=== PATIENT | male | born 1965 | race Caucasian/White ===

== ENCOUNTER 2025-05-02 20:11 | Inpatient (IN) | payer MEDICAID, OTHER ==
[~2025-05-02] VITALS: Ht 175.3 cm; Wt 66.0 kg
[2025-05-02] MEDS ORDERED: magnesium sulf-water 4G/100mL 100 ML IV PRN (22:35)
[2025-05-02] MEDS ORDERED: magnesium sulf-water 2g/50mL 50 ML IV PRN (22:35)
[2025-05-02] MEDS ORDERED: ondansetron/PF 4mg/2ml inj IV PRN (22:35)
[2025-05-02] MEDS ORDERED: potassium Cl 40MEQ/1/2NS 520ml 520 ML IV PRN (22:35)
[2025-05-02] MEDS ORDERED: mag hydrox/Alum hydrox/simeth 30ml oral suspension PO PRN (22:35)
[2025-05-02] MEDS ORDERED: magnesium Cl slow-release 64mg tablet PO PRN (22:35)
[2025-05-02] MEDS ORDERED: potassium Cl 20 mEq SR tablet PO PRN ×2 (22:35)
[2025-05-02] MEDS ORDERED: LANS30CA56 PO (23:14)
[2025-05-02] MEDS ORDERED: TRAZ150T78 PO (23:14)
[2025-05-02] MEDS ORDERED: CITA-178 PO (23:14)
[2025-05-02] MEDS ORDERED: LISI10TA27 PO (23:14)
[2025-05-02] MEDS ORDERED: ESCI-8 PO (23:14)
[2025-05-02] MEDS ORDERED: BUPR1PAT20 TD (23:14)
[2025-05-02] MEDS ORDERED: ATOR-2 PO (23:14)
[2025-05-02] MEDS ORDERED: DIPH25CA83 PO (23:14)
[2025-05-02] MEDS ORDERED: HYDR-3964 PO (23:14)
[2025-05-02] MEDS ORDERED: OMEG-270 PO (23:14)
--- NOTE | 2025-05-02 23:14 | HISTORY AND PHYSICAL-Residence ---
History & Physical Providers to CC Resident Creating Document: BHAVIN LUCEROLUKASDESEAN THOMAS CC: JOSELYN VARGAS MD ~ History of Present Illness Reason for Admit\Complaint: Hydropneumothorax History of Present Illness Patient is a 59-year-old male with a history of recent diagnosis of lung neoplasia, chronic pancreatitis, hypertension, depression/anxiety, and recent history of SBO who came transferred from [facility] for higher level of care. Patient was initially admitted at [facility] at the end of March with diagnosis of SBO which was treated medically and discharged. On the day after discharge, patient went back to the ER due to nausea and vomiting, imaging was performed where he was found to have a right hydropneumothorax along with a lung mass, fluid was sent for cytology which was consistent with adenocarcinoma of the lung according to transfer records. Patient was then placed a chest tube on 04/27/25. According to discharge summary from [facility] patient had a continued air leak and persistent pleural effusion reason why patient was transferred to our facility for higher level of care. Patient currently denies significant shortness of breath, nausea, vomiting or constipation. He does report some right-sided chest pain on inspiration. Allergies: Coded Allergies: codeine (Verified Allergy, Unknown, 05/02/25) itching and abdominal pain Past Medical History Past Medical History Recent diagnosis of lung neoplasia Chronic pancreatitis Hypertension Depression/anxiety Past Surgical History Surgical History Comment Exploratory laparotomy for SBO in 2012 Several facial reconstructive surgeries as a child Cholecystectomy 40 years ago Family History Family History: FH: alcoholism FATHER FH: kidney disease FATHER Past Social History Smoking: Non-Smoker Alcohol Use: None Drug Use: Marijuana Lives with: Spouse, Family Lives In: Home Occupation: employed ROS ROS All symptoms were reviewed and found negative except for pertinent positives mentioned in HPI Exam General: General: awake, alert oriented to place, time, and person HEENT: No pallor present, no icterus, moist mucous membranes Neck: No masses and tenderness Resp: Unlabored. Breath sounds are decreased on the right hemithorax, with crackles throughout. Normal breath sounds on the left Chest: Chest tube present on the right lung. No signs of subcutaneous emphysema Cardiovascular: Regular Rate and rhythm, normal S1 and S2 without murmur, rub or gallop Abdomen: Soft and nontender, no organomegaly, no guarding and rigidity, bowel sounds present Neuro: No focal weakness in the upper and lower limb muscles, power of the muscles 5/5 bilateral upper and lower extremities, normal reflexes bilaterally. Cranial nerves intact Extremities: No cyanosis,clubbing or edema Skin: Warm and Dry. No lesions Psych: Normal affect Advance Care Planning Advanced Care plannin - 30 Minutes Additional Plan Patient is a 59-year-old male with a history of recent diagnosis of lung neoplasia, chronic pancreatitis, hypertension, depression/anxiety, and recent history of SBO who came transferred from [facility] for higher level of care. Transferred from [facility] for higher level of care for persistent right hydropneumothorax in the setting of lung malignancy. Persistent right hydropneumothorax in the setting of lung malignancy Lung adenocarcinoma per transfer records Imaging and labs from transfer facility reviewed Initial CT of abdomen and pelvis from [facility] demonstrated right large hydropneumothorax. Posterior chest x-rays report improvement Chest tube still in place. Persistent air leak from chest tube according to referring physician Patient is hemodynamically stable Will consult CT surgeon in a.m. Patient will need referral to Oncology upon discharge Recent history of SBO, resolved Will monitor bowel movements and signs of further obstruction Hypertension Continue lisinopril Anxiety/depression/insomnia Continue citalopram, trazodone, Benadryl Chronic pain Continue [place] p.r.n. GERD Start Pantoprazole daily Lansoprazole not in formulary Code Status: Full code DVT prophylaxis: Lovenox Nutrition: Regular diet PT: Ordered Prognosis: Guarded Disposition: Direct admit to PCU with tele monitoring. Patient accepted by Dr. Villela. Continue medical management. Pending CT surgeon consult Desean Olson MD Internal Medicine Resident PGY-2 Attending Physician Attestation Evaluation via HIPAA compliant A/V device. Idiscussed the case with the resident and agree with the resident's documentation with exceptions as below. 59-year-old man with a history of lung cancer of unknown pathology transferred from an outside hospital for the management of right hydropneumothorax. The treatment plan includes: Right tube thoracostomy to water seal. Empiric antimicrobial therapy with vancomycin and cefepime. Cardiothoracic Surgery evaluation. Time spent 50 minutes. Date of Service: May 02, 2025 Billing Provider: JOSELYN VARGAS MD, LEONARDO LUIS May 02, 2025 23:14 JOSELYN VARGAS MD May 03, 2025 03:04
[2025-05-03] VITALS (9 sets, daily range): BP systolic 82–114; BP diastolic 39–69; PULSE 40–70; RESP 12–22; TEMP 97–97.8; O2SAT 94–98
[2025-05-03] MEDS: enoxaparin 40mg/0.4ml syringe SUBCUT ONE (01:03)
[2025-05-03 07:47] LABS: MEAN PLATELET VOLUME 7.8 FL (7.4-10.4); RED CELL DISTRIBUTION WIDTH 15.8 % (11.5-14.5)
[2025-05-03] MEDS ORDERED: ESCITALOPRAM 10 mg tablet 10 MG TABLET PO SCH (08:00)
[2025-05-03] MEDS: K and/or MAG REPLACEMENT MC SCH (08:00)
[2025-05-03] MEDS ORDERED: docusate sod 100mg capsule PO SCH (08:00)
[2025-05-03] MEDS: docusate sod 100mg capsule PO SCH (08:11)
[2025-05-03] MEDS: pantoprazole 40mg Tablet.DR PO SCH (08:11)
[2025-05-03] MEDS: HYDROcodone/acetaminophen 5mg/325mg tablet PO PRN (08:11)
[2025-05-03] MEDS: OMEGA-3/DHA/EPA/FISH OIL 1 EACH CAPSULE.DR PO SCH (08:12)
[2025-05-03 08:30] LABS: CREATININE 0.95 MG/DL (0.60-1.10); TOTAL CARBON DIOXIDE 30.0 MMOL/L (24-32); eCRCL 74 ML/MIN; eGFR 81 ML/MIN
--- NOTE | 2025-05-03 10:37 | CONSULTATION REPORT ---
Consult Providers to CC ~ History of Present Illness Primary Medical Doctor: Transfer from [facility] Reason for Admit\Complaint: Malignant right pleural effusion recurrent right pneumothorax History of Present Illness The patient is a 59-year-old male with a history of a recurrent right pleural effusion for which he was seen at [facility] found to have a primary lung cancer specifically adenocarcinoma, underwent a right thoracentesis successfully subsequently developed a right-sided pneumothorax requiring a small pigtail catheter, the patient had persistent air leak and incomplete re- expansion of the lung spite of drainage of the right malignant pleural effusion, I spoke with the primary care provider at [facility] and he has been transferred to [facility] for further management in this case possible thoracoscopy with biopsy and closure of pleural fistula in and talc/chemical pleurodesis. Allergies: Coded Allergies: codeine (Verified Allergy, Unknown, 05/02/25) itching and abdominal pain Home Medications Home Medications Active Benadryl (Diphenhydramine Hcl) 25 Mg Capsule 6 Cap PO HS 30 Days Reported Hydrocodon-Acetaminophen 5-325 (Hydrocodone Bit/Acetaminophen) 5 Mg-325 Mg Tablet 1 Tab PO TID PRN Celexa* (Citalopram Hydrobromide) 20 Mg Tablet 1 Tab PO DAILY [place]-3 Acid Ethyl Esters 1 Gram Capsule 2 Cap PO BID Buprenorphine 10 Mcg/Hour Patch.tdwk 1 Patch TD Q7D Atorvastatin Calcium 80 Mg Tablet 1 Tab PO DAILY Lansoprazole 30 Mg Capsule.dr 1 Cap PO TID Lisinopril 10 Mg Tablet 1 Tab PO DAILY Trazodone Hcl 150 Mg Tablet 2 Tab PO HS PRN Past Medical History Past Medical History Recently diagnosed with lung cancer metastatic adenocarcinoma in nature. Chronic hypertension Recurrent right pleural effusion Recurrent right pneumothorax Chronic weight loss Family History Family History: FH: alcoholism FATHER FH: kidney disease FATHER Past Social History Social History Comment Lives with his and family ROS ROS Significant for: Cardiopulmonary. Evidence of shortness of breath, right-sided pleuritic chest pain and persistent air leak Exam Vitals: Vital Signs Date Time Temp Pulse Resp B/P (MAP) Pulse Ox O2 Delivery O2 Flow Rate FiO2 05/03/25 09:40 16 05/03/25 08:12 58 05/03/25 06:00 97.0 104/55 (71) 95 Room Air General: Looks pale chronically ill and malnourished. With loss of the facial fat HEENT: The palpable masses, no rhinorrhea noted Neck: Bladder carotid pulses, no evidence of adenopathy at the time of the examination. Chest: Chest: Mild COPD changes noted. No acute distress. There is a right pleural catheter in place with intermittent air leak and clear drainage in the Pleur- evac. Cardiovascular: Heart: S1-S2 regular, no S3 no murmurs heard. Abdomen: Soft, nontender bowel sounds are present no palpable masses no bruits noted. Extremities: Well-perfused, no acute ischemic changes, no evidence of DVT at the time of the visit. No significant edema. Central Nervous System: No focal deficits noted. Patient is able to communicate with clear speech and understanding appears to be in a good mood in spite of his associated comorbid conditions Musculoskeletal: Decreased muscle mass, he is weak and deconditioned Skin: Pale, no rash Diagnostic Data Last Recorded Lab Results: 05/03/25 0710 05/03/25 0710 Problems: (1) Air leaking from lung after procedure Status: Acute Assessment & Plan: Will need surgical intervention in view that the patient has persistent air leak with incomplete express her right lung after his pleurodesis [facility], this could represent a iatrogenic injury versus a little fistula due to his underlying malignancy, adenocarcinoma of the lung. He will need pleurodesis as well as a thoracoscopy for full examination of the pleural cavity may need stapling of pleural fistula if needed. We will review CT scan from [facility] when available. (2) Pneumothorax on right Status: Acute Assessment & Plan: Will need closer of pleural fistula and resolution of persistent air leak and persistent right pneumothorax. We will need pleurodesis both chemical and mechanical and possible pleural tent as the case may be. (3) Pleural effusion, malignant Status: Chronic Permanent Comment: Has been scheduled for surgery in the morning will need a thoracoscopy with biopsy possible closure of pleural leak or fistula as well as lordosis with talc, mechanical pleurodesis and chemical pleurodesis with Vibramycin. I discussed with the patient nature of his condition need for further intervention patient understand and has agreed with the plan. He knows that this is fairly for palliation purposes and for completion of his workup he is here to visit with Oncology. Last Edited By: Jonas Blank on May 03, 2025 12:22 (4) Recurrent right pleural effusion Status: Chronic Visit Coding Cardiology Date of Service: May 03, 2025 Billing Provider: JONAS BLANK MD Cardiology Evaluation and Ligia: [id number] INP/OBS CARE (High) Cardiology Consultation Codes: 54836-[id number] CONSULT <80MIN JONAS BLANK MD May 03, 2025 10:37
--- NOTE | 2025-05-03 10:39 | RADIOLOGY REPORT ---
CHEST RADIOGRAPH Indication: eval hydroptx Technique: Single frontal view of the chest was obtained Comparison: None FINDINGS: Lines and Tubes: Moderate right hydro pneumothorax. Right chest tube in place. Lungs: No focal consolidation. Pleura: Moderate right hydro pneumothorax. Right chest tube in place. Cardiomediastinal contours: Unremarkable Bones: No acute osseous abnormality. IMPRESSION: Moderate right hydro pneumothorax. Right chest tube in place.
[2025-05-03] MEDS: MESSAGE TO NURSING PO ONE ×3 (13:08)
--- NOTE | 2025-05-03 13:09 | ELECTROCARDIOGRAPH REPORT ---
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 MANDY Jarvis Measurements Intervals [place] Rate: 41 P: 87 MI: 191 QRS: 17 QRSD: 99 T: 33 QT: 519 QTc: 429 Interpretive Statements Sinus bradycardia Electronically Signed On 05-03-2025 17:26:[address] MANDY Jarvis Please click the below link to view image of tracing.
[2025-05-03] MEDS ORDERED: BUPR1PAT2 TOP (13:12)
[2025-05-03 14:03] LABS: APTT 31 SECONDS (22-32); INR 1.0 INR
[2025-05-03] MEDS ORDERED: FURO40TA4 PO (15:51)
[2025-05-03] MEDS ORDERED: EMPA10TA PO (15:51)
[2025-05-03] MEDS ORDERED: CARV3.123 PO (15:51)
[2025-05-03] MEDS ORDERED: CHOL100017 PO (16:26)
--- NOTE | 2025-05-03 17:33 | PROGRESS NOTE- Residence ---
Progress Note - Resident Providers to CC Resident Creating Document: JENNIFER CHINCHILLA, RES ~ Antibiotic Timeout Antibiotic Ordered?: Yes Subjective The patient was seen and examined at bedside today. He complains of pain in his right lower chest on deep inspiration. He is scheduled for right thoracoscopy with drainage of effusion, pleurodesis and pleural biopsy tomorrow by Dr. Blank. Objective Vital Signs Date Time Temp Pulse Resp B/P (MAP) Pulse Ox O2 Delivery O2 Flow Rate FiO2 05/03/25 16:34 16 05/03/25 11:00 97.1 43 82/39 (53) 95 Room Air 96/48 (64) Result Diagram: 05/03/25 0710 05/03/25 0710 General: awake, alert oriented to place, time, and person, not in acute distress HEENT: No pallor present, no icterus, moist mucous membranes Neck: No masses and tenderness Resp: Unlabored. Breath sounds are decreased on the right hemithorax, with crackles throughout. Normal breath sounds on the left Chest: Chest tube present in the right lung. Tenderness around the insertion site. No signs of subcutaneous emphysema Cardiovascular: Regular Rate and rhythm, normal S1 and S2 without murmur, rub or gallop Abdomen: Soft and nontender, no organomegaly, no guarding and rigidity, bowel sounds present Neuro: No focal weakness in the upper and lower limb muscles, power of the muscles 5/5 bilateral upper and lower extremities, normal reflexes bilaterally. Cranial nerves intact Extremities: No cyanosis,clubbing or edema Skin: Warm and Dry. No lesions Psych: Normal affect Coagulation Studies Laboratory Tests Test 05/03/25 13:23 Prothrombin Time 10.5 SECONDS (9.0-12.0) INR International Normalized Ratio 1.0 INR Activated Partial Thromboplast Time 31 SECONDS (22-32) Coagulation Comments Assessment Assessment The patient is a 59-year-old male with a history of recent diagnosis of lung neoplasia, chronic pancreatitis, hypertension, depression/anxiety, and recent history of SBO who came transferred from [facility] for higher level of care. Transferred from [facility] for higher level of care for persistent right hydropneumothorax in the setting of lung malignancy. Plan Plan Persistent right hydropneumothorax in the setting of lung malignancy Lung adenocarcinoma CT surgeon, Dr. Blank consulted. Patient is scheduled for right thoracoscopy with drainage of effusion, pleurodesis and pleural biopsy tomorrow by Dr. Blank. NPO after midnight. Imaging and labs from transfer facility reviewed. Initial CT of abdomen and pelvis from [facility] demonstrated right large hydropneumothorax. Posterior chest x-rays report improvement. Chest tube still in place. Persistent air leak from chest tube. Patient is hemodynamically stable. Patient will need referral to Oncology upon discharge. Recent history of SBO, resolved Will monitor bowel movements and signs of further obstruction Hypertension Continue lisinopril 10 mg daily. Anxiety/depression/insomnia Continue citalopram, trazodone, Benadryl. Chronic pain Continue Rice p.r.n. and morphine 2 mg q.4h PRN. GERD Start Pantoprazole 40 mg p.o. daily. Chronic pancreatitis Lipase within normal limits. Continue outpatient follow up. Code Status: Full code DVT prophylaxis: Lovenox Nutrition: Regular diet, NPO after midnight PT: Ordered Prognosis: Guarded Disposition: Continue care in PCU. NPO after midnight and surgery tomorrow. Jennifer Chinchilla MD Internal Medicine Resident, PGY-2 Date of Service: May 03, 2025 Billing Provider: ELLY JUNIOR MD,JENNIFER ANDUJAR, RES May 03, 2025 17:33
[2025-05-03] MEDS: lactose-reduced food (Ensure Enlive) - 237ml bottle PO SCH (17:43)
[2025-05-03] MEDS: HYDROcodone/acetaminophen 10/325mg tab PO PRN (20:18)
[2025-05-04] VITALS (27 sets, daily range): BP systolic 94–134; BP diastolic 39–59; PULSE 45–85; RESP 14–20; TEMP 96.9–98.9; O2SAT 92–100
[2025-05-04] MEDS ORDERED: HYDROcodone/acetaminophen 5mg/325mg tablet PO PRN (00:30)
[2025-05-04 06:24] LABS: MEAN PLATELET VOLUME 7.9 FL (7.4-10.4); RED CELL DISTRIBUTION WIDTH 15.9 % (11.5-14.5)
[2025-05-04 06:47] LABS: CREATININE 1.05 MG/DL (0.60-1.10); TOTAL CARBON DIOXIDE 31.7 MMOL/L (24-32); eCRCL 67 ML/MIN; eGFR 72 ML/MIN
[2025-05-04] MEDS: BUPIVAcaine 0.5% inj/PF 30 ml vial IJ ONE (07:00)
[2025-05-04] MEDS: ceFAZolin 2gm/dext,iso 50mL 50 ML IV ONE (07:10)
[2025-05-04] MEDS ORDERED: BUPIVAcaine 0.5% inj/PF 60 ML ONE (07:26)
[2025-05-04] MEDS ORDERED: fentaNYL /PF 50mcg/ml 5ml ampule ONE (08:16)
[2025-05-04] MEDS ORDERED: midazolam 1 mg/ML 2ml injection ONE (08:16)
[2025-05-04] MEDS: TALC 4 GM VIAL ***intrapleural administration only IX ONE (09:00)
[2025-05-04] MEDS ORDERED: dexamethasone sod phosphate 4mg/ml inj. ONE (09:09)
[2025-05-04] MEDS ORDERED: propofol inj 20 ML IV ONE (09:09)
[2025-05-04] MEDS ORDERED: rocuronium 10mg/ml inj IV ONE (09:09)
[2025-05-04] MEDS ORDERED: LIDOcaine 1% (10mg/ml) 2ml vial ONE (09:10)
[2025-05-04] MEDS ORDERED: LIDOcaine 2% (20mg/ml) 5ml vial ONE (09:10)
[2025-05-04] MEDS ORDERED: ePHEDrine 50MG/ML INJ. ONE (09:10)
[2025-05-04] MEDS ORDERED: ondansetron/PF 4mg/2ml inj ONE (09:10)
[2025-05-04] MEDS: MESSAGE TO NURSING PO ONE (10:00)
[2025-05-04] MEDS ORDERED: albuterol 2.5 MG/3 ML nebule NEB PRN (10:30)
[2025-05-04] MEDS ORDERED: metoclopramide 5 mg/ml inj IV PRN (10:30)
[2025-05-04] MEDS ORDERED: ondansetron/PF 4mg/2ml inj IV PRN ×2 (10:30→10:45)
[2025-05-04] MEDS ORDERED: glycopyrrolate 0.2mg/ml inj ONE (10:35)
[2025-05-04] MEDS: ringers solution, lacted 1,000 ML IV SCH (10:45)
[2025-05-04] MEDS ORDERED: morphine 4 MG/ML inj SYRINge IV PRN (10:45)
[2025-05-04] MEDS ORDERED: hydrALAZINE 20mg/ml inj. IV PRN (10:45)
[2025-05-04] MEDS ORDERED: labetalol 20mg/4ml (5mg/ml) syringe IV PRN (10:45)
[2025-05-04 11:06] LABS: ABG BASE EXCESS -0.8 mmol/L (-2.0-3.0); ABG HCO3 26.2 mmol/L (21.0-28.0); ABG OXYGEN SATURATION 98.6 % (94.0-98.0); ABG PCO2 (T) 51.3 mmHg (35.0-48.0); ABG PH (T) 7.322 (7.350-7.450); ABG PO2 (T) 126.5 mmHg (83.0-108.0); FCOHb 0.8 % (0.5-1.5); FHHb 1.4 % (0.0-5.0); FIO2 40.0 mmHg/%; FLOW 6 L/min; FMetHb 0.1 % (0.0-1.5); FO2Hb 97.7 % (94.0-98.0); MODE MASK - SIMPLE; PATIENT TEMPERATURE 36.3; TOTAL HEMOGLOBIN 13.0 G/dl (13.5-17.5)
--- NOTE | 2025-05-04 11:12 | RADIOLOGY REPORT ---
EXAM: DI CHEST,SINGLE VIEW HISTORY: POST OP COMPARISON: DI CHEST,SINGLE VIEW on DOS: 05/03/25 TECHNIQUE: Portable supine AP view of the chest was performed. FINDINGS: There has been interval removal of the right chest small bore thoracostomy tube and interval placemen t of 2 larger bore right thoracostomy tubes. Moderate to large right pneumothorax persists. There is associated right lung atelectasis. There is new left mid to lower lung infiltrate. No left pneumothor ax. The heart is not enlarged. The central pulmonary arteries may be ectatic. IMPRESSION: 1. Interval placement of 2 large bore right thoracostomy tubes with moderate to large right pneumotho rax persisting, with associated right lung atelectasis. 2. Developing left mid to lower lung infiltrate which may represent atelectasis or pneumonia. 3. Possible pulmonary arterial hypertension.
[2025-05-04] MEDS: acetaminophen 1,000mg/100ml IV 100 ML IV PRN (11:47)
--- NOTE | 2025-05-04 12:20 | OPERATIVE REPORT ---
Operative Report Providers to Internal medicine service ~ Date of Procedure: May 04, 2025 Pre-Operative Diagnosis: Persistent hydropneumothorax, malignant pleural effusion, COPD Post-Operative Diagnosis Metastatic adenocarcinoma with seeding on the parietal chest wall Recurrent malignant pleural effusion Persistent air leak History of recurrent pleural taps rule out iatrogenic lung injury Ex-smoker (30 year pack history) COPD Malnutrition Wasting syndrome Procedure Performed 1-Right via VATS 2. Diagnostic thoracoscopy 3. Chest wall biopsy and frozen section 4. Partial decortication right lower lobe 5. Closure of bottle leak with Tisseel/tissue sealant 6. Mechanical pleurodesis 7. Chemical and talc pleurodesis using 400 mg of doxycycline and 10 g of talc powder mixed with normal saline 500 cc 8. Intercostal block of 0.25% Marcaine for postoperative pain management total of 60 cc was injected Surgeon: Jonas Blank MD Cardiovascular and thoracic surgery scheduler Aron Kumar PA-C [facility] cardiac team Anesthesiologist: Allyson Brandon Type of Anesthesia: General, Other Findings: The patient exhibited serous drainage from the pleural cavity which was submitted for cytology and cell count as well as for bacteriology, the patient had some area of adhesions especially at the base of the lung right lower lobe and chest wall, there were two areas of air leak when between the interlobar fissure mostly from the under surface of the right upper lobe and the superior segment right lower lobe likely from previous pleural tapping, and a 2nd one on the lateral and posterior surface of the right lower lobe segment likely from pl eural tapping. The patient exhibited extensive sitting on the chest wall multiple lesions please see pictures insert from diagnostic thoracoscopy. Multiple biopsies from the chest wall lesions submitted for frozen section yielded positive for malignancy consistent with adenocarcinoma pending permanent sections. After the lesions were biopsy the lower lobe was partially trapped a nd was partially decorticated, the areas of air leakage were sealed using Tisseel tissue sealant with success. The patient was kept on low tidal volume ventilation and extubated the end of the procedure there was no evidence of any further air leak. At the end of the procedure intercostal block of 0.25% Marcaine was performed and mechanical pleurodesis with a Bovie scratch pad was performed throughout the parietal chest wall diaphragmatic surface and lung surface without significant bleeding. After that the right pleural cavity was reduced using doxycycline 100 mg diluted with 500 cc of normal saline as well as 10 g of talc diluted with normal saline. This was very well tolerated by the patient once that was completed two chest tubes were used to drain the pleural space one angled and straight 28 Czech respectively connected via Y connector to Pleur-evac and clamped the patient was then allowed to be repositioned supine at the end of the procedure and the chest tube kept clamped until the patient reached recovery room were the chest tubes were unclamped and kept on water seal. The patient tolerated procedure very well spite of the chronicity of his illness and associated comorbid conditions. Complications None Prosthetics\Implants used: None Drains: Two chest tube 28 Czech straight and angle respectively connected via Y connector into a Pleur-evac and kept clamped until patient was transferred to recovery room Estimated Blood Loss: 25 cc Specimen Removed: She saw biopsy submitted for frozen section positive for: Adenocarcinoma pending permanent sections Description of Procedure: After clinical evaluation and after having discussed with the patient and the patient's family the nature of his condition need for further workup and intervention and after discussing the fact that the patient's prior pleural fluid cytology had revealed some cells suspicious for adenocarcinoma and after discussing the case with the original physician from [facility], and after having a discussion with the patient and the patient's family by the bedside and after the patient and family understood that this was a palliative procedure and intervention to further she would like on the patient diagnosis and management of his malignant pleural effusion the patient and family agreed to the procedure. The patient underwent a preop workup and signed a consent. The patient was seen by myself the anesthesiologist nursing staff in the preop area and the right chest surgical site was marked with the blue marking pen which was a non permanent ink pen. Patient was then taken to the operating room placed in supine position given induction of the anesthesia without difficulty a double-lumen tube was inserted under bronchoscopic control by the anesthesiologist and after that the patient was placed on lateral decubitus right side of the chest up a beanbag was used to stabilize the patient in the midline a silk tape was used to stabilize the patient across the hip an axillary roll was used to protect the brachial plexus the pressure points were padded with Gelfoam and the patient over body was covered with the warming blanket and a Laura Hugger. The an airplane was used to expose the chest using an arm breast and the position of the chest tube was again confirmed while the patient has a lateral decubitus without difficulty once that was accomplished the patient is prepped and draped in sterile fashion using ChloraPrep and sterile drapes a specialized surgical site an Ioban drape was used to isolate the skin at this time a time-out was: The patient indications of the procedure as well as laterality of the procedure was confirmed preoperative antibiotics were also confirmed patient ID was confirmed an old present members of the cardiac surgery team agreed. The patient was then approached with three three trocar incisions when on the 8th intercostal space with mid to anterior axillary line and two trocars on the seven and a intercostal spaces with inferior scapular line and posterior axillary line on the direct vision of the right lung was deflated by clamping the tracheal site of the double-lumen tube allow in single lung ventilation to the left lung. Right lung was deflated pre trocars were inserted with direct vision and 212 mm trocars were inserted and five mm trocar was inserted for CO2 insufflation and placement of a 30 degree 5 mm scope. Once that was accomplished a thorough exploration of the pleural cavity was performed please see pictures insert. Large amount of fluid was drained out of the pleura l cavity submitted for cell count and cytology as well as bacteriology Gram stain and aerobic and anaerobic cultures after that thorough exploration was performed some fibrin strand of adhesions were cleared with blunt dissection then the lung was inspected there were two areas of denuded lung surface likely related to previous pleural taps when located in the interlobar fissure between the undersurface of the right upper lobe and the superior segment right lower lobe and the other one in the posterolateral segment of the right lower lobe once the were identified and after the pleural fluid was suctioned completely with continue to explore the pleural cavity there were multiple areas of sitting of the chest wall which were biopsy with the biopsy forceps and submitted for frozen section. Frozen section revealed the tissue to be positive for malignancy identified as adenocarcinoma, pending permanent sections. After that some fibrinous strands that partially collapsed right lower lobe were removed by the wound a sharp blunt dissection and decortication of the right lower lobe. At this time we proceeded then to address air leak using Tisseel tissue sealant which was directly under endoscopic control squared on the raw areas of the lung that were identified from where the air leak was coming from this was successful with good sealing of the air leak after that mechanical pleurodesis was performed using a Bovie scratch pad x2 gradient and abrasive surface on the ribcage diaphragmatic surface and surface of the lung this was very well tolerated with minimal bleeding. After that was completed the chemical pleurodesis was performed using 500 mg of vancomycin and 10 g of talc diluted in 500 cc of normal saline that was allowed to sit in the pleural cavity while the patient was allowed to decubitus then two chest tubes were used to drain the pleural spaces when angle and straight 28 Czech respectively connected via Y connector and to Pleur-evac and then clamp the right lung was then ventilated with low tidal volumes to avoid any air leak and the patient was placed in supine position allowing even distribution of the pleurodesis agent in the right pleural cavity once that was accomplished and intercostal block with 0.25% Marcaine was done at the end of procedure using 0.25% Marcaine total of 60 cc followed by closure of the trocar sites which were irrigated with antibiotic irrigation and closure performed with 0 Vicryl 2-0 Vicryl and 4-0 Monocryl once that was completed the chest tubes were secured in place connected via Y connected to Pleur-evac and kept clamp. The patient was then placed in supine position he emerged from the anesthesia without difficulty double-lumen tube was removed and the patient was extubated on the table and transferred to recovery room. A chest x-ray done in recovery room showed the lung partially expanded well the chest tubes were clamped the chest tubes were then unclamped allowing spontaneous drainage under water-seal into the Pleur-evac which was consistent with the amount of volume placed into the pleural space for pleurodesis the patient maintain excellent oral cancer saturations and a blood gas showed good oxygenation with mild CO2 retention postoperatively patient was weaned off oxygen and keep on room air. He tolerated procedure very well. The family including his and daughter were notified about the intraoperative findings and course of surgical intervention as well as expectation and future planning in terms of long-term management of his adenocarcinoma with the oncology department. All questions were answered with the patient family's satisfaction. Counts repoted as correct: Yes X-Ray findings: No Foreign body Visit Coding Cardiology Date of Service: May 04, 2025 Billing Provider: JONAS BLAKN MD Cardiology Evaluation and Ligia: PROCEDURE ONLY JONAS BLANK MD May 04, 2025 12:20
[2025-05-04] MEDS: HYDROmorphone/PF 0.2 MG/ML SYRINGE IV PRN ×2 (16:16→23:18)
[2025-05-04] MEDS: ceFAZolin 1GM/D5W- ADD-VANTAGE 50 ML IV SCH (16:34)
--- NOTE | 2025-05-04 17:13 | PROGRESS NOTE- Residence ---
Progress Note - Resident Providers to CC Resident Creating Document: JENNIFER CHINCHILLA MOISESMERYGERTRUDE, BRADLEY ~ Antibiotic Timeout Antibiotic Ordered?: Yes Subjective The patient was seen and examined at bedside today. He went for CT surgery this morning. Objective Vital Signs Date Time Temp Pulse Resp B/P (MAP) Pulse Ox O2 Delivery O2 Flow Rate FiO2 05/04/25 16:16 18 05/04/25 16:15 60 96/46 (63) 05/04/25 15:00 96.9 97 Room Air 05/04/25 12:39 0.0 Result Diagram: 05/04/25 0543 05/04/25 0543 General: awake, alert oriented to place, time, and person, not in acute distress HEENT: No pallor present, no icterus, moist mucous membranes Neck: No masses and tenderness Resp: Unlabored. Breath sounds are decreased on the right hemithorax, with crackles throughout. Normal breath sounds on the left Chest: Chest tube present in the right lung. Tenderness around the insertion site. No signs of subcutaneous emphysema Cardiovascular: Regular Rate and rhythm, normal S1 and S2 without murmur, rub or gallop Abdomen: Soft and nontender, no organomegaly, no guarding and rigidity, bowel sounds present Neuro: No focal weakness in the upper and lower limb muscles, power of the muscles 5/5 bilateral upper and lower extremities, normal reflexes bilaterally. Cranial nerves intact Extremities: No cyanosis,clubbing or edema Skin: Warm and Dry. No lesions Psych: Normal affect Coagulation Studies Laboratory Tests Test 05/03/25 13:23 Prothrombin Time 10.5 SECONDS (9.0-12.0) INR International Normalized Ratio 1.0 INR Activated Partial Thromboplast Time 31 SECONDS (22-32) Coagulation Comments Assessment Assessment The patient is a 59-year-old male with a history of recent diagnosis of lung neoplasia, chronic pancreatitis, hypertension, depression/anxiety, and recent history of SBO who came transferred from [facility] for higher level of care. Transferred from [facility] for higher level of care for persistent right hydropneumothorax in the setting of lung malignancy. Plan Plan Persistent right hydropneumothorax in the setting of lung malignancy Lung adenocarcinoma Patient is going for right thoracoscopy with drainage of effusion, pleurodesis and pleural biopsy Dr. Blank today. Imaging and labs from transfer facility reviewed. Initial CT of abdomen and pelvis from [facility] demonstrated right large hydropneumothorax. Posterior chest x-rays report improvement. Chest tube still in place. Persistent air leak from chest tube. Patient is hemodynamically stable. Patient will need referral to Oncology upon discharge. Recent history of SBO, resolved Will monitor bowel movements and signs of further obstruction. Hypertension Continue lisinopril 10 mg daily. Anxiety/depression/insomnia Continue citalopram, trazodone, Benadryl. Chronic pain Continue [place] p.r.n. and morphine 2 mg q.4h PRN. GERD Start Pantoprazole 40 mg p.o. daily. Chronic pancreatitis Lipase within normal limits. Continue outpatient follow up. Severe protein calorie malnutrition Nutrition consulted. Code Status: Full code DVT prophylaxis: Lovenox Nutrition: NPO PT: Ordered Prognosis: Guarded Disposition: Continue care in PCU. CT surgery today. Jennifer Chinchilla MD Internal Medicine Resident, PGY-2 Date of Service: May 04, 2025 Billing Provider: ELLY JUNIOR MD,JENNIFER ANDUJAR, RES May 04, 2025 17:12
[2025-05-04] MEDS: enoxaparin 40mg/0.4ml syringe SUBCUT SCH (20:20)
[2025-05-04] MEDS: ceFAZolin/D5W- 1GM premix 50 ML IV SCH (23:14)
[2025-05-05] VITALS (8 sets, daily range): BP systolic 90–121; BP diastolic 45–64; PULSE 51–65; RESP 15–23; TEMP 97.6–98.1; O2SAT 92–95
[2025-05-05] MEDS: HYDROcodone/acetaminophen 10/325mg tab PO PRN (05:39)
[2025-05-05 06:33] LABS: MEAN PLATELET VOLUME 8.0 FL (7.4-10.4); RED CELL DISTRIBUTION WIDTH 16.2 % (11.5-14.5)
--- NOTE | 2025-05-05 06:38 | RADIOLOGY REPORT ---
CHEST RADIOGRAPH Indication: POST OP Technique: Portable supine AP view of the chest was performed. Comparison: DI CHEST,SINGLE VIEW on DOS: 05/04/25, DI CHEST,SINGLE VIEW on DOS: 05/03/25, DI CHEST,SINGLE VIEW on DOS: 05/04/25 FINDINGS: Decreased right pneumothorax. Chest tubes in place. There is associated right lung atelectasis. Ther e is new left mid to lower lung infiltrate. No left pneumothorax. The heart is not enlarged. The minoo tral pulmonary arteries may be ectatic. IMPRESSION: no interval change . Decreased right pneumothorax. Chest tubes in place.
[2025-05-05 06:58] LABS: CREATININE 0.77 MG/DL (0.60-1.10); TOTAL CARBON DIOXIDE 30.7 MMOL/L (24-32); eCRCL 94 ML/MIN; eGFR > 90 ML/MIN
[2025-05-05] MEDS: morphine 4 MG/ML inj SYRINge IV PRN (08:09)
--- NOTE | 2025-05-05 09:07 | PROGRESS NOTE ---
Progress Note CV Providers to CC ~ Progress Note: s/p Right VATS, drainage of effusion, chest wall bx, closure of air leak, with talc and mechanical pleuradesis 05/05/2025 Antibiotics Ordered?: Yes If Yes, Indications?: finishing surgical prophylaxis Subjective Subjective c/o surgical pain but says it is reasonably controlled with meds Objective Vitals Vital Signs Date Time Temp Pulse Resp B/P (MAP) Pulse Ox O2 Delivery O2 Flow Rate FiO2 05/05/25 08:12 61 05/05/25 08:09 20 05/05/25 02:00 98.0 112/53 (72) 94 Room Air 0.0 21 Lab Results: 05/05/25 0558 05/05/25 0558 Objective CXR - near complete expansion of Right lung slight subpulmonic space noted Chest tube remains on water seal no definitive air leak noted - most of the drainage today is only the pleuradesis slurry from surgery. Tube marked at 9:15am awake and alert resting comfortably in bed taking PO well bilat BS present non-labored resps on RA trace edema Coagulation Studies Laboratory Tests Test 05/03/25 13:23 Prothrombin Time 10.5 SECONDS (9.0-12.0) INR International Normalized Ratio 1.0 INR Activated Partial Thromboplast Time 31 SECONDS (22-32) Coagulation Comments Cardiac Rhythm: Sinus Rhythm Problem\Assessment\Plan Problems/Diagnosis: (1) Status post video-assisted thoracoscopic surgery (VATS) Assessment & Plan: doing well on POd #1 will keep chest tube on water seal for now continue current care (2) Malignant pleural effusion (3) Metastatic adenocarcinoma ANUPAM BRO May 05, 2025 09:07
--- NOTE | 2025-05-05 13:32 | PROGRESS NOTE- Residence ---
Progress Note - Resident Providers to CC Resident Creating Document: HANK HORTON RES ~ Antibiotic Timeout Antibiotic Ordered?: No Subjective The patient was seen and examined at bedside today. He is still complaining of the pain over the chest near the chest tube, rated 7/10 and requested for pain meds. Objective Vital Signs Date Time Temp Pulse Resp B/P (MAP) Pulse Ox O2 Delivery O2 Flow Rate FiO2 05/05/25 11:00 97.7 51 17 97/59 (72) 95 Room Air 0.0 21 Result Diagram: 05/05/25 0558 05/05/25 0558 General: awake, alert oriented to place, time, and person, not in acute distress HEENT: No pallor present, no icterus, moist mucous membranes Neck: No masses and tenderness Resp: Unlabored. Breath sounds are decreased on the right hemithorax, with crackles throughout. Normal breath sounds on the left Chest: Chest tube present in the right lung. Tenderness around the insertion site. No signs of subcutaneous emphysema Cardiovascular: Regular Rate and rhythm, normal S1 and S2 without murmur, rub or gallop Abdomen: Soft and nontender, no organomegaly, no guarding and rigidity, bowel sounds present Neuro: No focal weakness in the upper and lower limb muscles, power of the muscles 5/5 bilateral upper and lower extremities, normal reflexes bilaterally. Cranial nerves intact Extremities: No cyanosis,clubbing or edema Skin: Warm and Dry. No lesions Psych: Mood and affect are normal Coagulation Studies Laboratory Tests Test 05/03/25 13:23 Prothrombin Time 10.5 SECONDS (9.0-12.0) INR International Normalized Ratio 1.0 INR Activated Partial Thromboplast Time 31 SECONDS (22-32) Coagulation Comments Advance Care Planning Advanced Care plannin - 30 Minutes Assessment Assessment The patient is a 59-year-old male with a history of recent diagnosis of lung neoplasia, chronic pancreatitis, hypertension, depression/anxiety, and recent history of SBO who came transferred from [facility] for higher level of care. Transferred from [facility] for higher level of care for persistent right hydropneumothorax in the setting of lung malignancy. Plan Plan Persistent right hydropneumothorax 2/2 adenocarcinoma of lung Status post VATS, partial decortication of right lower lobe, mechanical pleurodesis, POD day 1 Dr. Blank is on board Initial CT of abdomen and pelvis from [facility] demonstrated right large hydropneumothorax. Posterior chest x-rays report improvement. Chest tube still in place. Persistent air leak from chest tube. Patient is hemodynamically stable. Patient will need referral to Oncology upon discharge. Recent history of SBO, resolved Will monitor bowel movements and signs of further obstruction. Hypertension Blood pressure is in 108 /45 Continue lisinopril 10 mg daily Anxiety/depression/insomnia Continue citalopram, trazodone, Benadryl. Chronic pain Continue [place] p.r.n. and morphine 2 mg q.4h PRN. GERD Start Pantoprazole 40 mg p.o. daily. Chronic pancreatitis Lipase within normal limits. Continue outpatient follow up. Severe protein calorie malnutrition Nutrition consulted. Code Status: Full code DVT prophylaxis: Lovenox Nutrition: NPO PT: Ordered Prognosis: Guarded Hank Horton Internal Medicine Resident, PGY-2 Date of Service: May 05, 2025 Billing Provider: ELLY JUNIOR MD,HANK, RES May 05, 2025 13:32
[2025-05-05] MEDS: magnesium hydroxide 30ml (MOM) UD suspension PO PRN (19:18)
[2025-05-06] VITALS (8 sets, daily range): BP systolic 91–108; BP diastolic 47–59; PULSE 49–61; RESP 14–20; TEMP 97.2–97.6; O2SAT 91–97
--- NOTE | 2025-05-06 06:13 | RADIOLOGY REPORT ---
CHEST RADIOGRAPH Indication: POST OP Technique: Single frontal view of the chest was obtained COMPARISON: DI CHEST,SINGLE VIEW on DOS: 05/05/25, DI CHEST,SINGLE VIEW on DOS: 05/04/25, DI CHEST,SINGLE VIEW on DOS: 05/03/25 FINDINGS: Lines and Tubes: Right chest tube unchanged. Lungs: Mild residual right basilar pulmonary airspace disease and possible small pleural effusion. Tr dori right apical pneumothorax unchanged. Cardiomediastinal contours: Unremarkable Bones: Unremarkable. Right neck and axillary subcutaneous emphysema unchanged. IMPRESSION: 1. Stable small right apical pneumothorax, right neck and axillary subcutaneous emphysema and mild re sidual right basilar pulmonary airspace disease with possible small pleural effusion. 2. Right chest tube.
[2025-05-06 06:29] LABS: MEAN PLATELET VOLUME 8.1 FL (7.4-10.4); RED CELL DISTRIBUTION WIDTH 16.3 % (11.5-14.5)
[2025-05-06 07:15] LABS: CREATININE 0.82 MG/DL (0.60-1.10); TOTAL CARBON DIOXIDE 28.8 MMOL/L (24-32); eCRCL 88 ML/MIN; eGFR > 90 ML/MIN
--- NOTE | 2025-05-06 09:34 | PROGRESS NOTE ---
Progress Note CV Providers to CC ~ Progress Note: s/p Right VATS, drainage of effusion, chest wall bx, closure of air leak, with talc and mechanical pleuradesis 05/05/2025 Antibiotics Ordered?: No Objective Vitals Vital Signs Date Time Temp Pulse Resp B/P (MAP) Pulse Ox O2 Delivery O2 Flow Rate FiO2 05/06/25 08:55 17 05/06/25 08:00 55 05/06/25 07:00 97.5 98/58 (71) 91 Room Air 0.0 21 Lab Results: 05/06/25 0603 05/06/25 0603 Objective CXR - (per Radiology) IMPRESSION: 1. Stable small right apical pneumothorax, right neck and axillary subcutaneous emphysema and mild residual right basilar pulmonary airspace disease with possible small pleural effusion. 2. Right chest tube. Chest tube remains on water seal no air leak 600 mL drainage over 24 hours awake and alert resting comfortably in bed taking PO well bilat BS present a pleural friction rub noted non-labored resps on RA regular bradycardic rhythm SB on tele trace edema Coagulation Studies Laboratory Tests Test 05/03/25 13:23 Prothrombin Time 10.5 SECONDS (9.0-12.0) INR International Normalized Ratio 1.0 INR Activated Partial Thromboplast Time 31 SECONDS (22-32) Coagulation Comments Cardiac Rhythm: Sinus Rhythm Problem\Assessment\Plan Problems/Diagnosis: (1) Status post video-assisted thoracoscopic surgery (VATS) Assessment & Plan: doing well on POd #2 will keep chest tube on water seal for now continue current care (2) Malignant pleural effusion (3) Metastatic adenocarcinoma ANUPAM BRO May 06, 2025 09:34
[2025-05-06] MEDS ORDERED: megestrol acetate 400mg/10ml UD oral suspension PO SCH ×2 (11:00→11:55)
[2025-05-06] MEDS: metoclopramide 5 mg/ml inj IV PRN (16:04)
--- NOTE | 2025-05-06 18:43 | PROGRESS NOTE- Residence ---
Progress Note - Resident Providers to CC Resident Creating Document: JENNIFER CHINCHILLA CON, RES ~ Antibiotic Timeout Antibiotic Ordered?: No Subjective The patient was seen and examined at bedside today. POD 2 of right VATS procedure. Still has chest tube with water seal. He complains of pain at the chest tube insertion site. Plan is to clamp and remove chest tube tomorrow. Objective Vital Signs Date Time Temp Pulse Resp B/P (MAP) Pulse Ox O2 Delivery O2 Flow Rate FiO2 05/06/25 15:54 97.5 58 14 108/58 (75) 91 Room Air 05/06/25 07:00 0.0 21 Result Diagram: 05/06/2560205/06/25 06 General: awake, alert oriented to place, time, and person, not in acute distress HEENT: No pallor present, no icterus, moist mucous membranes Neck: No masses and tenderness Resp: Unlabored. Breath sounds are decreased on the right hemithorax, with crackles throughout. Normal breath sounds on the left Chest: Chest tube present in the right lung. Tenderness around the insertion site. No signs of subcutaneous emphysema Cardiovascular: Regular Rate and rhythm, normal S1 and S2 without murmur, rub or gallop Abdomen: Soft and nontender, no organomegaly, no guarding and rigidity, bowel sounds present Neuro: No focal weakness in the upper and lower limb muscles, power of the muscles 5/5 bilateral upper and lower extremities, normal reflexes bilaterally. Cranial nerves intact Extremities: No cyanosis,clubbing or edema Skin: Warm and Dry. No lesions Psych: Normal affect Coagulation Studies Laboratory Tests Test 05/03/25 13:23 Prothrombin Time 10.5 SECONDS (9.0-12.0) INR International Normalized Ratio 1.0 INR Activated Partial Thromboplast Time 31 SECONDS (22-32) Coagulation Comments Assessment Assessment The patient is a 59-year-old male with a history of recent diagnosis of lung neoplasia, chronic pancreatitis, hypertension, depression/anxiety, and recent history of SBO who came transferred from [facility] for higher level of care. Transferred from [facility] for higher level of care for persistent right hydropneumothorax in the setting of lung malignancy. Plan Plan Persistent right hydropneumothorax 2/2 adenocarcinoma of lung S/p VATS, partial decortication of right lower lobe, mechanical pleurodesis, POD 2 Dr. Blank is on board Plan for clamping and removal of chest tube tomorrow Patient underwent VATS procedure with partial decortication of right lower lobe, mechanical pleurodesis on 05/04/[address] of abdomen and pelvis from [facility] demonstrated right large hydropneumothorax. Posterior chest x-rays report improvement. Patient is hemodynamically stable. Patient will need referral to Oncology upon discharge. Transaminasemia Normal bilirubin but elevated transaminases. Follow up with ultrasound abdomen. Recent history of SBO, resolved Will monitor bowel movements and signs of further obstruction. Hypertension Blood pressures stable Continue lisinopril 10 mg daily Anxiety/depression/insomnia Continue citalopram, trazodone, Benadryl. Chronic pain Continue [place] p.r.n. and morphine 2 mg q.4h PRN. GERD Start Pantoprazole 40 mg p.o. daily. Chronic pancreatitis Lipase within normal limits. Continue outpatient follow up. Severe protein calorie malnutrition Nutrition consulted. Constipation likely opioid induced Received milk of magnesia, Colace. Follow up tomorrow. Code Status: Full code DVT prophylaxis: Lovenox Nutrition: Regular diet PT: Ordered Prognosis: Guarded Disposition: Possible removal of chest tube tomorrow by Dr. Blank. Follow up with ultrasound abdomen. Jennifer Chinchilla MD Internal Medicine Resident, PGY-2 Date of Service: May 06, 2025 Billing Provider: ELLY JUNIOR MD,JENNIFER ANDUJAR, RES May 06, 2025 18:43
[2025-05-06] MEDS: ondansetron/PF 4mg/2ml inj IV PRN (21:05)
[2025-05-07] VITALS (8 sets, daily range): BP systolic 96–128; BP diastolic 43–56; PULSE 49–58; RESP 10–19; TEMP 97.4–98.3; O2SAT 91–100
[2025-05-07 06:54] LABS: CREATININE 0.94 MG/DL (0.60-1.10); TOTAL CARBON DIOXIDE 34.9 MMOL/L (24-32); eCRCL 77 ML/MIN; eGFR 82 ML/MIN
[2025-05-07 07:01] LABS: MEAN PLATELET VOLUME 8.0 FL (7.4-10.4); RED CELL DISTRIBUTION WIDTH 16.4 % (11.5-14.5)
[2025-05-07] MEDS: megestrol acetate 400mg/10ml UD oral suspension PO SCH (08:33)
--- NOTE | 2025-05-07 10:15 | RADIOLOGY REPORT ---
INDICATION: Elevated LFTs TECHNIQUE: Multiple real-time sonographic images of the abdomen were obtained. COMPARISON: None FINDINGS: The liver is homogenous in echogenicity. The liver measures 17.4 cm. No intrahepatic bilia ry ductal dilatation is noted. The gallbladder is surgically absent. The common bile duct measures 0.4 cm. The right kidney measures 10.5 cm. No hydronephrosis. There is a cyst in the lower pole measuring 2. 8 x 3.2 x 3.3 cm. The pancreas is not well visualized due to obscuration from bowel gas. The visualized portions of the IVC and aorta are grossly unremarkable. IMPRESSION: 1. Normal echotexture and size of the liver. 2. Cholecystectomy.
[2025-05-07] MEDS: mineral oil 133ml enema RC ONE (10:45)
--- NOTE | 2025-05-07 11:15 | RADIOLOGY REPORT ---
EXAM: DI CHEST,SINGLE VIEW Indication: POST OP Technique: Single frontal view of the chest was obtained Comparison: DI CHEST,SINGLE VIEW on DOS: 05/06/25, DI CHEST,SINGLE VIEW on DOS: 05/05/25, DI CHEST,SINGL E VIEW on DOS: 05/04/25, DI CHEST,SINGLE VIEW on DOS: 05/03/25 FINDINGS: Lines and Tubes: Right chest tubes are visualized. Lungs: Right multifocal consolidative opacities. Pleura: No effusion. No pneumothorax. Cardiomediastinal contours: Unremarkable. Subcutaneous gas projects over the right chest wall. Bones: No acute osseous abnormality. IMPRESSION: No significant change compared to prior exam.
[2025-05-07] MEDS: bisacodyl 10mg suppository rectal RC STA (11:50)
--- NOTE | 2025-05-07 13:44 | PROGRESS NOTE ---
Progress Note CV Providers to CC ~ Progress Note: s/p Right VATS, drainage of effusion, chest wall bx, closure of air leak, with talc and mechanical pleuradesis 05/05/2025 Antibiotics Ordered?: No Objective Vitals Vital Signs Date Time Temp Pulse Resp B/P (MAP) Pulse Ox O2 Delivery O2 Flow Rate FiO2 05/07/25 11:31 97.4 49 10 96/46 (63) 92 Room Air 05/06/25 07:00 0.0 21 Lab Results: 05/07/25 0609 05/07/25 0609 Objective cxr stable tube drainage slowed significantly awake and alert bilat bs present on RA surgical incisions [place] Coagulation Studies Laboratory Tests Test 05/03/25 13:23 Prothrombin Time 10.5 SECONDS (9.0-12.0) INR International Normalized Ratio 1.0 INR Activated Partial Thromboplast Time 31 SECONDS (22-32) Coagulation Comments Cardiac Rhythm: Sinus Rhythm Problem\Assessment\Plan Problems/Diagnosis: (1) Status post video-assisted thoracoscopic surgery (VATS) Assessment & Plan: doing well on POd #3 chest tube removed at 13:30 after clamp trial will recheck cxr in AM will need Oncology f/u after discharge will need to f/u with our office in 2 weeks for chest tube stitch removal (2) Malignant pleural effusion (3) Metastatic adenocarcinoma ANUPAM BRO May 07, 2025 13:44
--- NOTE | 2025-05-07 17:50 | PROGRESS NOTE- Residence ---
Progress Note - Resident Providers to CC Resident Creating Document: JENNIFER CHINCHILLA MOISESMERYGERTRUDE, RES ~ Antibiotic Timeout Antibiotic Ordered?: No Subjective The patient was seen and examined at bedside today. His chest tube was clamped and successfully removed. Patient also had a bowel movement today with Dulcolax suppository. Anticipate discharge home tomorrow. Objective Vital Signs Date Time Temp Pulse Resp B/P (MAP) Pulse Ox O2 Delivery O2 Flow Rate FiO2 05/07/25 17:06 53 16 95 Room Air* 0 21 05/07/25 15:52 97.6 104/55 (71) Result Diagram: 05/07/25 0609 05/07/25 0609 General: awake, alert oriented to place, time, and person, not in acute distress HEENT: No pallor present, no icterus, moist mucous membranes Neck: No masses and tenderness Resp: Unlabored. Breath sounds are decreased on the right hemithorax, Right pleural rub. Normal breath sounds on the left Chest: Chest tube present in the right lung. Tenderness around the insertion site. No signs of subcutaneous emphysema Cardiovascular: Regular Rate and rhythm, normal S1 and S2 without murmur, rub or gallop Abdomen: Soft and nontender, no organomegaly, no guarding and rigidity, bowel sounds present Neuro: No focal weakness in the upper and lower limb muscles, power of the muscles 5/5 bilateral upper and lower extremities, normal reflexes bilaterally. Cranial nerves intact Extremities: No cyanosis,clubbing or edema Skin: Warm and Dry. No lesions Psych: Normal affect Coagulation Studies Laboratory Tests Test 05/03/25 13:23 Prothrombin Time 10.5 SECONDS (9.0-12.0) INR International Normalized Ratio 1.0 INR Activated Partial Thromboplast Time 31 SECONDS (22-32) Coagulation Comments Assessment Assessment The patient is a 59-year-old male with a history of recent diagnosis of lung neoplasia, chronic pancreatitis, hypertension, depression/anxiety, and recent history of SBO who came transferred from [facility] for higher level of care. Transferred from [facility] for higher level of care for persistent right hydropneumothorax in the setting of lung malignancy. Plan Plan Persistent right hydropneumothorax 2/2 adenocarcinoma of lung S/p VATS, partial decortication of right lower lobe, mechanical pleurodesis, POD 3 Dr. Blank is on board Chest tube clamped and later successfully removed. Plan for tomorrow is to get a chest x-ray and possible discharge VATS procedure with partial decortication of right lower lobe, mechanical pleurodesis on 05/04/[address] of abdomen and pelvis from [facility] demonstrated right large hydropneumothorax. Posterior chest x-rays report improvement. Patient is hemodynamically stable. Patient will need referral to Oncology upon discharge. Transaminasemia Normal bilirubin but elevated transaminases. Ultrasound abdomen within normal limits. Recent history of SBO, resolved Will monitor bowel movements and signs of further obstruction. Hypertension Blood pressures stable Continue lisinopril 10 mg daily Anxiety/depression/insomnia Continue citalopram, trazodone, Benadryl. Chronic pain Continue [place] p.r.n. and morphine 2 mg q.4h PRN. GERD Start Pantoprazole 40 mg p.o. daily. Chronic pancreatitis Lipase within normal limits. Continue outpatient follow up. Severe protein calorie malnutrition Nutrition consulted. Constipation likely opioid induced Received milk of magnesia, Colace. Follow up tomorrow. Code Status: Full code DVT prophylaxis: Lovenox Nutrition: Regular diet PT: Ordered Prognosis: Guarded Disposition: Chest X ray in AM. Anticipate discharge in the next 24-48 hours. Jennifer Chinchilla MD Internal Medicine Resident, PGY-2 Date of Service: May 07, 2025 Billing Provider: ELLY JUNIOR MD,JENNIFER ANDUJAR, RES May 07, 2025 17:49
[2025-05-08] VITALS (7 sets, daily range): BP systolic 95–117; BP diastolic 47–55; PULSE 52–61; RESP 12–19; TEMP 97.3–99; O2SAT 93–99
[2025-05-08] MEDS: HYDROcodone/acetaminophen 10/325mg tab PO PRN (00:08)
[2025-05-08 07:15] LABS: MEAN PLATELET VOLUME 7.9 FL (7.4-10.4); RED CELL DISTRIBUTION WIDTH 16.1 % (11.5-14.5)
[2025-05-08 07:43] LABS: CREATININE 0.91 MG/DL (0.60-1.10); TOTAL CARBON DIOXIDE 29.3 MMOL/L (24-32); eCRCL 80 ML/MIN; eGFR 85 ML/MIN
--- NOTE | 2025-05-08 08:13 | PROGRESS NOTE ---
Progress Note CV Providers to CC ~ Antibiotics Ordered?: No Subjective Subjective S/P R VATS for pleurodesis. Has Metastatic adenocarcinoma. No overnight complaints. He is sitting up in bed having breakfast. CXR done just now shows no overt PTX. Objective Vitals Vital Signs Date Time Temp Pulse Resp B/P (MAP) Pulse Ox O2 Delivery O2 Flow Rate FiO2 05/08/25 07:11 97.8 54 12 108/50 (69) 95 Room Air 05/07/25 21:04 0 21 Lab Results: 05/08/25 0626 05/08/25 0623 Coagulation Studies Laboratory Tests Test 05/03/25 13:23 Prothrombin Time 10.5 SECONDS (9.0-12.0) INR International Normalized Ratio 1.0 INR Activated Partial Thromboplast Time 31 SECONDS (22-32) Coagulation Comments Cardiac Rhythm: Sinus Rhythm, Sinus Bradycardia Problem\Assessment\Plan Additional Plan F/U with our office in 2 weeks with CXR PA and lat prior to visit. Otherwise continue per hospitalist service. Sepsis Screening Reassessment Date: May 08, 2025 Supervising Co-signing Provider: LOUISE Driscoll May 08, 2025 08:13
--- NOTE | 2025-05-08 11:46 | PATHOLOGY REPORT ---
[facility] [address] [place] [address] SURGICAL PATHOLOGY REPORT CaseNumber: [id number] Surgeon:Jonas Blank M.D. CLINICAL INFORMATION CLINICAL INFORMATION: Lung cancer. DIAGNOSIS DIAGNOSIS: A.CHEST WALL; BIOPSY - METASTATIC ADENOCARCINOMA WITH MUCINOUS FEATURES, CONSISTENT WITH PULMONARY ORIGIN. DIAGNOSIS: B.PLEURAL FLUID, RIGHT; THORACENTESIS - SUSPICIOUS FOR METASTATIC ADENOCARCINOMA. DIAGNOSIS: C.PLEURAL PEEL; BIOPSY - RARE GLAND OF UNKNOWN SIGNIFICANCE. - MESOTHELIAL HYPERPLASIA. - MICROCALCIFICATION IDENTIFIED. COMMENT NOTE: Please also refer to the patient's previous right pleural fluid cytology case ([id number]), which showed malignant cells consistent with a lung primary adenocarcinoma. NOTE: Please also refer to the patient's previous right pleural fluid cytology case ([id number]), which showed malignant cells consistent with a lung primary adenocarcinoma. NOTE: Please also refer to the patient's previous right pleural fluid cytology case ([id number]), which showed malignant cells consistent with a lung primary adenocarcinoma. MICROSCOPIC DESCRIPTION A. CHEST WALL MICROSCOPIC DESCRIPTION: Reviewed are four H&E stained slides (including two frozens) and one DiffQui k stained slide of fibrous tissue. Within the fibrous tissue are small glands with mucin, consistent with an adenocarcinoma with mucinous features. Reviewed one MOC31 stained slide of block A1. The lesional glands are positive for MOC31. Reviewed one TTF-1 stained slide of block A1. The lesional glands are positive for TTF-1. Reviewed one CK7 stained slide of block A1. The lesional glands are positive for CK7. Reviewed one CK20 stained slide of block A1. The lesional glands are negative for CK20. B. PLEURAL FLUID, RIGHT MICROSCOPIC DESCRIPTION: Reviewed one Papanicolaou stained cytospin, one DiffQuik stained smear and o ne H&E stained cell block of pleural fluid. The cytospin shows a few scattered and small groups of at ypical glandular appearing slides. The DiffQuik smear is paucicellular. The cell block showssmall cliff ups of atypical glandular-appearing cells. C. PLEURAL PEEL MICROSCOPIC DESCRIPTION: Reviewed one H&E stained slide of a pleural peel biopsy. The slides show fib gema tissue with mesothelial proliferation. There is a glandular structure. There is a microcalcifica tion identified. GROSS DESCRIPTION A. CHEST WALL GROSS DESCRIPTION: Received unfixed from the operating room labeled with the patient's name, number, and "chest wall biopsy" is a 2.5 x 2.5 x 0.2 cm aggregate of irregularly shaped pieces of bello-flores ti ssue. The specimen is examined at the time of surgery by Dr. Stroud and a portion of the tissue is wilkes bmitted for frozen section. INTRAOPERATIVE CONSULTATION WITH FROZEN SECTION DIAGNOSIS BY Dr. Stroud at 1000: "Positive for adeno carcinoma. Mucinous features." (Performed at [address] [place] [address]) (Reported to Dr. Blank) Sections are submitted as follows: A1) Frozen section remnantA2) Remainder of specimen B. PLEURAL FLUID, RIGHT GROSS DESCRIPTION: Received labeled with the patient's name, number, and "right pleural fluid" is 27. 5 ML of unfixed bloody, cloudy, watery, yellow fluid. Specific gravity is 1.020. One smear for Diff -Quik, one double cytospin slide, and one cell block are prepared. The cell block is submitted as B1. The time at which the specimen was removed was 0910. The time at which the specimen was placed in fo rmalin was 1550. (mwb) C. PLEURAL PEEL GROSS DESCRIPTION: Received in formalin labeled with the patient's name, number, and "pleural peel" a re two pieces of flores tissue 0.7 x 0.7 x 0.3 cm and 2 x 0.7 x 0.5 cm. The specimen is entirely submit karen as C1. The time at which the specimen was removed was 0910. The time at which the specimen was p laced in formalin was not provided. Electronically signed by: Yimi Kahn M.D. 05/08/2025 11:13:00 AM
[2025-05-08] MEDS: psyllium seed 5.8 gm packet (sugar-free) PO SCH (12:50)
[2025-05-08] MEDS: magnesium hydroxide 30ml (MOM) UD suspension PO SCH (12:50)
--- NOTE | 2025-05-08 16:25 | RADIOLOGY REPORT ---
Exam: CT CT CHEST ABDOMEN PELVIS History: Severe abdominal pain, status post VATS Comparison Study: None Technique: Multidetector spiral CT of the chest, abdomen and pelvis was performed from lower neck to pubic symphysis Axial, coronal and sagittal multiplanar reformats were performed by the technologist on a separate workstation. Radiation Dose : 1. Chest/Abdomen/Pelvis: CTDIvol 11.5 mGy, DLP 1104 mGy*cm. Findings: Lower neck: Normal thyroid. Lungs: Right lower lobe airspace consolidation. Dependent atelectasis. Heart/Vascular Structures: Cardiomegaly. Coronary artery calcifications. Lymph Nodes: No adenopathy Pleura: Large right hydro pneumothorax. This may be postsurgical. Liver: The liver is normal in size. No focal lesions. Normal hepatic vascular enhancement. Gallbladder and Biliary Tree: Unremarkable Spleen: Unremarkable Pancreas: The pancreas is normal in appearance without focal lesions or abnormal enhancement. Adrenal Glands: Unremarkable Kidneys: Kidneys demonstrate normal symmetric enhancement without focal lesions, calculi or hydroneph rosis. Bladder: Distended bladder with moderate volume gas. Bowel: The stomach is grossly normal in appearance. Nonspecific bowel-gas pattern. Moderate volume l arge volume colonic stool. The appendix is not visualized; however, no secondary findings of acute a ppendicitis identified. Ascites: Absent Lymphadenopathy: No mesenteric, retroperitoneal or periportal lymphadenopathy. Abdominal Wall and Mesentery: Moderate volume subcutaneous emphysema along the right chest wall and u pper abdomen. Vasculature: The visualized abdominal aorta is normal in size and caliber. Abdominal and pelvic vess els demonstrate normal enhancement. Pelvic Organs: Unremarkable Musculoskeletal: No aggressive focal bony lesions, acute fractures or dislocation. Degenerative polo es of the spine. IMPRESSION: Moderate volume subcutaneous emphysema along the right chest wall and right hemithorax extending to t he upper abdomen. There is also a large right hydro pneumothorax. Findings may be expected postoperat david change status post VATS and pleurodesis. Moderately distended urinary bladder with moderate volume gas. This may be related to prior [place] ca theterization. Nonspecific bowel-gas pattern with moderate to large volume colonic stool.
[2025-05-08] MEDS ORDERED: PSYL575P22 PO (18:25)
[2025-05-08] MEDS ORDERED: POLY17PO10 PO (18:25)
[2025-05-08] MEDS ORDERED: DOCU100C40 PO (18:26)
--- NOTE | 2025-05-08 19:01 | DISCHARGE SUMMARY-Residence ---
Discharge Summary Providers to CC Resident Creating Document: SENAITADA ALVAREZ CON, RES ~ Discharge Summary Admission Diagnosis: Persistent hydropneumothorax, malignant pleural effusion, COPD Hospital Course DATE OF ADMISSION: DATE OF DISCHARGE: Condition on DC: Stable Discharge Summary: Laboratory Tests Test 05/07/25 06:09 05/08/25 06:23 05/08/25 06:26 White Blood Count 6.8 X10'3 7.5 X10'3 Red Blood Count 4.37 X10'6 4.04 X10'6 Hemoglobin 12.6 g/dl 11.5 g/dl Hematocrit 37.5 % 34.6 % Mean Corpuscular Volume 85.7 FL 85.6 FL Mean Corpuscular Hemoglobin 28.9 PG 28.6 PG Mean Corpuscular Hemoglobin Concent 33.7 g/dL 33.4 g/dL Red Cell Distribution Width 16.4 % 16.1 % Platelet Count 345 X10'3 349 X10'3 Mean Platelet Volume 8.0 FL 7.9 FL Neutrophils (%) (Auto) 72.8 % 80.0 % Lymphocytes (%) (Auto) 11.4 % 8.7 % Monocytes (%) (Auto) 10.7 % 7.7 % Eosinophils (%) (Auto) 4.2 % 2.9 % Basophils (%) (Auto) 0.9 % 0.7 % Neutrophils # (Auto) 4.9 X10'3 6.0 X10'3 Lymphocytes # (Auto) 0.8 X10'3 0.6 X10'3 Monocytes # (Auto) 0.7 X10'3 0.6 X10'3 Eosinophils # (Auto) 0.3 X10'3 0.2 X10'3 Basophils # (Auto) 0.1 X10'3 0.0 X10'3 CBC Comment Sodium Level 139 MMOL/L 137 MMOL/L Potassium Level 5.6 MMOL/L 4.1 MMOL/L Chloride Level 102 MMOL/L 104 MMOL/L Carbon Dioxide Level 34.9 MMOL/L 29.3 MMOL/L Anion Gap 2 4 Blood Urea Nitrogen 9 MG/DL 8 MG/DL Creatinine 0.94 MG/DL 0.91 MG/DL Estimated GFR/1.73 m2 82 ML/MIN 85 ML/MIN BUN/Creatinine Ratio 9.6 8.8 Glucose Level 88 MG/DL 110 MG/DL Calcium Level 8.5 MG/DL 8.2 MG/DL Total Bilirubin 0.5 MG/DL 0.3 MG/DL Aspartate Amino Transf (AST/SGOT) 43 U/L 33 U/L Alanine Aminotransferase (ALT/SGPT) 94 U/L 71 U/L Alkaline Phosphatase 180 IU/L 223 IU/L Total Protein 5.6 G/DL 5.3 G/DL Albumin 2.2 G/DL 2.1 G/DL Globulin 3.4 G/DL 3.2 G/DL Albumin/Globulin Ratio 0.6 0.7 Chemistry Comments *Problems/Diagnosis: (1) Status post video-assisted thoracoscopic surgery (VATS) (2) Malignant pleural effusion (3) Metastatic adenocarcinoma Date of Service: May 08, 2025 Billing Provider: ELLY JUNIOR MD, SOWMYA MANJARI, RES May 08, 2025 19:01
--- NOTE | 2025-05-08 19:58 | RADIOLOGY REPORT ---
CHEST RADIOGRAPH REASON FOR EXAM: POST OP COMPARISON: DI CHEST,SINGLE VIEW on DOS: 05/07/25, DI CHEST,SINGLE VIEW on DOS: 05/06/25, DI CHEST,SING LE VIEW on DOS: 05/05/25, DI CHEST,SINGLE VIEW on DOS: 05/04/25, DI CHEST,SINGLE VIEW on DOS: 05/03/25 TECHNIQUE: One view of the chest is provided FINDINGS: The cardiomediastinal silhouette is within normal limits for size. The patient is tilted a nd rotated which degrades evaluation. There is small right apical pneumothorax and also pneumothorax at the right lung base , not significantly changed from the recent prior studies. There is interstiti al and airspace disease in long the inferior right middle lobe and right upper lobe that may represen t scarring and cause trapped lung although acute infiltrate is not ruled out. The right chest tubes h ave been removed. There is right chest wall subcutaneous emphysema. The left costophrenic sulcus is e xcluded from view. No focal airspace disease is identified in the visualized left lung. IMPRESSION: Interval removal of right-sided chest tubes. The small right apical and basal pneumothorax appears un changed in size. This may be secondary to trapped lung.
[2025-05-08] MEDS ORDERED: polyethylene glycol 3350 17gm powd pack PO SCH (21:00)
[2025-05-09] MEDS ORDERED: BUPRENORPHINE (Butrans) 10MCG PATCH.TDWK (7-day patch) TD SCH (23:25)
== END 2025-05-08 18:56 | disposition home or self-care (01) | DRG 121 ==
LOC: PCU 3S 22:20
PROVIDERS: ADMIT Family Medicine; ATTEND Family Medicine
PROC: 3E0L4GC Introduction of Other Therapeutic Substance into Pleural Cavity, Percutaneous Endoscopic Approach (ICD-10-PCS; 2025-05-04)
PROC: 0W9930Z Drainage of Right Pleural Cavity with Drainage Device, Percutaneous Approach (ICD-10-PCS; 2025-05-04)
PROC: 3E0T3BZ Introduction of Anesthetic Agent into Peripheral Nerves and Plexi, Percutaneous Approach (ICD-10-PCS; 2025-05-04)
PROC: 0WB84ZX Excision of Chest Wall, Percutaneous Endoscopic Approach, Diagnostic (ICD-10-PCS; 2025-05-04)
PROC: 0B5N4ZZ Destruction of Right Pleura, Percutaneous Endoscopic Approach (ICD-10-PCS; 2025-05-04)
PROC: 0BCF4ZZ Extirpation of Matter from Right Lower Lung Lobe, Percutaneous Endoscopic Approach (ICD-10-PCS; principal; 2025-05-04 08:08)
DX: C34.91 Malignant neoplasm of unspecified part of right bronchus or lung (principal); E43 Unspecified severe protein-calorie malnutrition; E88.A Wasting disease (syndrome) due to underlying condition; J94.2 Hemothorax; J91.0 Malignant pleural effusion; J93.82 Other air leak; J44.9 Chronic obstructive pulmonary disease, unspecified; K86.1 Other chronic pancreatitis; I10 Essential (primary) hypertension; F32.A Depression, unspecified; F41.9 Anxiety disorder, unspecified; K21.9 Gastro-esophageal reflux disease without esophagitis; G47.00 Insomnia, unspecified; G89.29 Other chronic pain; Z68.21 Body mass index [BMI] 21.0-21.9, adult; Z88.5 Allergy status to narcotic agent
CPT/HCPCS: 36415; 36600; 71045; 71250; 74176; 76700; 80053; 82803; 82948; 83690; 83735; 85018; 85025; 85610; 85730; 86885; 86900; 86901; 87070; 87075; 87081; 87102; 93005; 94760; 97161; 97530; 99285; A4215; A4615; A4618; A6253; A6258; A6402; A6449; A7000; A7048; C1758; C9250; G0378; J0131; J0665; J0690; J1100; J1171; J1271; J1650; J2003; J2250; J2270; J2405; J2704; J2710; J2765; J3010; J3490; J7120; Q0163

== ENCOUNTER 2025-05-29 10:33 | Outpatient (CLI) | payer MEDICAID ==
[~2025-05-29 10:33] MED LIST: ATOR-2 PO; BUPR1PAT20 TD; CHOL100017 PO; CITA-178 PO; DIPH25CA83 PO; FURO-150 PO; HYDR-3965 PO; LACT1CAP26 PO; LANS30CA56 PO; OMEG-270 PO; PSYL575P22 PO; TRAZ150T78 PO
--- NOTE | 2025-05-29 12:34 | RADIOLOGY REPORT ---
EXAM: DI CHEST,TWO VIEWS CLINICAL HISTORY: PLEURAL EFFUSION COMPARISON: DI CHEST,SINGLE VIEW on DOS: 05/16/25, DI CHEST,SINGLE VIEW on DOS: 05/16/25, DI CHEST,SING LE VIEW on DOS: 05/15/25, DI CHEST,SINGLE VIEW on DOS: 05/15/25, DI CHEST,SINGLE VIEW on DOS: 05/14/25 TECHNIQUE: Frontal and lateral view of the chest was obtained FINDINGS: Lines and Tubes: Right pigtail catheter. Left chest port tip projects over the superior vena cava Lungs: Moderate right hydropneumothorax. Pleura: No effusion. No pneumothorax. Cardiomediastinal contours: Unremarkable Bones: No acute osseous abnormality. IMPRESSION: Moderate right hydropneumothorax with right pigtail catheter.
== END 2025-05-29 23:59 | disposition home or self-care (01) ==
LOC: RAD 10:33
PROVIDERS: ATTEND Thoracic Surgery (Cardiothoracic Vascular Surgery)
DX: J90 Pleural effusion, not elsewhere classified (principal); J98.11 Atelectasis; J98.4 Other disorders of lung
CPT/HCPCS: 71046

== ENCOUNTER 2025-05-31 16:15 | Emergency (ER) | payer MEDICAID ==
[~2025-05-31] VITALS: Ht 175.3 cm; Wt 67.3 kg
[2025-05-31 16:48] LABS: MEAN PLATELET VOLUME 8.1 FL (7.4-10.4); RED CELL DISTRIBUTION WIDTH 16.1 % (11.5-14.5)
--- NOTE | 2025-05-31 16:57 | RADIOLOGY REPORT ---
DI CHEST,TWO VIEWS CLINICAL HISTORY: CP, THORA VENT COMPARISON: DI CHEST,TWO VIEWS on DOS: 05/29/25, DI CHEST,TWO VIEWS on DOS: 05/13/25, DI CHEST,TWO VIEWS on DOS: 05/10/25 TECHNIQUE: Frontal and lateral view of the chest was obtained FINDINGS: Lines and Tubes: Right-sided Thora vent is noted terminating over the right medial upper lung zone. L eft IJ approach Port-A-Cath terminating over the superior cavoatrial junction. Lungs: Right lower lung zone opacification with blunting of the right costophrenic angle. Interval improvement in the right-sided pneumothorax . Cardiomediastinal contours: Unremarkable Bones: No acute osseous abnormality. IMPRESSION: Improving right-sided hydro pneumothorax with associated atelectasis. Small residual right-sided pneu mothorax and Small to moderate pleural effusion. Right-sided Thora vent remains unchanged with the distal end over the right medial upper lung zone.
[2025-05-31 17:10] LABS: CREATININE 0.83 MG/DL (0.60-1.10); TOTAL CARBON DIOXIDE 29.1 MMOL/L (24-32); eCRCL 89 ML/MIN; eGFR > 90 ML/MIN
--- NOTE | 2025-05-31 17:16 | Physician Documentation ---
History of Present Illness ~ Chief Complaint: Post-operative complication Stated Complaint: STINT COMPLICATION Time Seen by MD: 23:19 Primary Medical Doctor: None HPI This is a 59-year-old male history of cancer and Thora-Vent in place who presents with concern for fleshy stuff draining from the Thora-Vent. Patient reports the Thora-Vent was placed due to "collapsed lung related to cancer, patient reports shortness of breath and chest pain, denies fever and chills though reports night sweats. Tetanus within 5 Years?: No Allergies: Coded Allergies: codeine (Verified Allergy, Unknown, 05/10/25) itching and abdominal pain Active Prescriptions See Medication Reconciliation Form. Medication Reconciliation Scheduled Atorvastatin Calcium (Atorvastatin Calcium), 1 TAB PO DAILY, (Reported) Buprenorphine (Buprenorphine), 1 PATCH TD Q7D, (Reported) Cholecalciferol (Vitamin D3) (Vitamin D3), 1 TAB PO DAILY, (Reported) Citalopram Hydrobromide* (Celexa*), 1 TAB PO DAILY, (Reported) Diphenhydramine Hcl (Benadryl), 6 CAP PO HS Lactobacillus Rhamnosus (Culturelle), 1 CAP PO BID [place]-3 Acid Ethyl Esters ([place]-3 Acid Ethyl Esters), 2 CAP PO BID, (Reported) Scheduled PRN Psyllium Husk (with Sugar) (Metamucil Powder), 5 ML PO DAILY PRN for constipation Trazodone Hcl (Trazodone Hcl), 2 TAB PO HS PRN for insomnia, (Reported) Discontinued Medications Furosemide (Lasix), 20 MG PO DAILY Discontinued Reason: Other Hydrocodone Bit/Acetaminophen 5/325 MG ([place] 5/325 MG), 1 TAB PO Q6H PRN for pain Discontinued Reason: Other Lansoprazole (Lansoprazole), 1 CAP PO TID, (Reported) Discontinued Reason: Other Past Medical History Patient History: FH: alcoholism FATHER FH: kidney disease FATHER Alcohol Use: None Drug Use: marijuana Lives with: Spouse, Family Lives In: Home Occupation: employed Review of Systems ROS As stated above in the HPI, otherwise all systems are reviewed and negative. Physical Exam Vital Signs: Temperature: 97.8, Source: Temporal, Heart Rate: 57, Respiratory Rate: 18, BP: 120/58, Pulse Oximetry: 96, Weight: 67.300 Oxygen Flow Rate: 0 Physical Exam VITALS: Reviewed and as above. GENERAL: Alert, nontoxic appearing, no apparent distress. HEENT: Chest drain in place on right chest wall RESPIRATORY: No increased work of breathing, no respiratory distress, speaking in full clear sentences CHEST: CV: BACK: GI: MUSCULOSKELETAL: SKIN: NEURO: PSYCH: Progress Results/Orders Results/Orders Orders - CLARA COUCH MD Cytology Needed (05/31/25 23:32) Completed Orders - CLARA COUCH MD Hydrocodone/Apap 10/325 (B[place]ic 10/325mg (05/31/25 23:05) Medications Received in ER Medications (Trade) Dose Ordered Sig/Tree Route PRN Reason Start Time Stop Time Status Last Admin Dose Admin ([place] 10/325mg tab) 1 tab ONCE ONCE PO 05/31/25 23:05 05/31/25 23:06 DC 05/31/25 23:07 1 TAB Vital Signs 05/31/25 05/31/25 05/31/25 05/31/25 16:26 20:04 20:28 23:07 Temp 97.8 98.3 Pulse 57 67 Resp 18 18 18 15 B/P (MAP) 120/58 122/62 (82) Pulse Ox 96 95 O2 Flow Rate 0 Laboratory Tests Test 05/31/25 16:38 White Blood Count 12.8 H Red Blood Count 4.90 Hemoglobin 14.3 Hematocrit 42.0 Mean Corpuscular Volume 85.6 Mean Corpuscular Hemoglobin 29.1 Mean Corpuscular Hemoglobin Concent 34.0 Red Cell Distribution Width 16.1 H Platelet Count 322 Mean Platelet Volume 8.1 Neutrophils (%) (Auto) 89.9 H Lymphocytes (%) (Auto) 4.6 L Monocytes (%) (Auto) 5.3 Eosinophils (%) (Auto) 0 Basophils (%) (Auto) 0.2 Neutrophils # (Auto) 11.5 H Lymphocytes # (Auto) 0.6 L Monocytes # (Auto) 0.7 Eosinophils # (Auto) 0.0 Basophils # (Auto) 0.0 CBC Comment Sodium Level 135 Potassium Level 4.8 Chloride Level 100 Carbon Dioxide Level 29.1 Anion Gap 6 L Blood Urea Nitrogen 10 Creatinine 0.83 Estimated GFR/1.73 m2 > 90 BUN/Creatinine Ratio 12.0 Glucose Level 109 H Calcium Level 9.0 Total Bilirubin 0.5 Aspartate Amino Transf (AST/SGOT) 43 H Alanine Aminotransferase (ALT/SGPT) 73 Alkaline Phosphatase 226 H Total Protein 7.2 Albumin 3.0 L Globulin 4.2 Albumin/Globulin Ratio 0.7 L Chemistry Comments Medical Decision Making Findings MSE performed in triage and patient returned to ED lobby by nursing staff to await available ED room Differential diagnosis includes but is not limited to: Pleural effusion, lung cancer Chest x-ray, single view, indication: Lung cancer Independent interpretation: Right pleural effusion, potential mass and opacification in the right middle lung, thoravent in the right lung, port in the left chest, left lung appears clear, normal cardiac silhouette normal mediastinum, Laboratory data independent interpretation: CBC: Leukocytosis 12.8 CMP: Unremarkable Emergency department course/medical decision-making: Was referred by his primary care doctor for some tissue that was aspirated from his THORA-VENT in the right chest. She wanted that sent for evaluation. Patient has this tissue like mucus that was aspirated from the THORA-VENT. He will be sent to pathology for cytology review. Patient has some increasing fluid in the right base of the lung compared to a prior chest x-ray a couple of days ago. Are the patient is not requiring oxygen. Patient is not complaining of shortness a breath. Patient does have a mild leukocytosis but has not had other signs such as fever sweats worrisome for an acute infection. Patient is stable for discharge. Test results and all this above was reviewed with the patient. Departure Time of Disposition: 23:23 Disposition: 01 HOME / SELF CARE / HOMELESS Impression: Primary Impression: Recurrent right pleural effusion Additional Impression: Lung cancer Qualified Codes: C34.90 - Malignant neoplasm of unspecified part of unspecified bronchus or lung Condition: Stable Discharge Instructions: Pleural Effusion Education Educated: Patient Educated regarding: diagnosis, treatment, need for follow up Signature Scribe Signature: No scribe Attestation: No scribe CAROLE TAVARES May 31, 2025 17:16 CLARA COUCH MD May 31, 2025 23:27
[2025-05-31 20:04] VITALS: TEMP 98.3
[2025-05-31] MEDS: HYDROcodone/acetaminophen 10/325mg tab PO ONE (23:07)
[2025-06-01 00:05] VITALS: BP 160/81; PULSE 63; RESP 18; O2SAT 95
[2025-06-01] MEDS ORDERED: HYDR-3973 PO (13:39)
== END 2025-06-01 00:08 | disposition home or self-care (01) ==
LOC: ER 16:15
DX: C34.91 Malignant neoplasm of unspecified part of right bronchus or lung (principal); J90 Pleural effusion, not elsewhere classified; F12.90 Cannabis use, unspecified, uncomplicated; Z79.899 Other long term (current) drug therapy; Z88.5 Allergy status to narcotic agent
CPT/HCPCS: 36415; 71046; 80053; 85025; 99285

== ENCOUNTER 2025-06-05 10:54 | Outpatient (CLI) | payer MEDICAID ==
[~2025-06-05 10:54] MED LIST changes: -FURO-150 PO; -HYDR-3965 PO; +HYDR-3973 PO; -LANS30CA56 PO
--- NOTE | 2025-06-05 13:00 | RADIOLOGY REPORT ---
DI CHEST,TWO VIEWS CLINICAL HISTORY: RECURRENT RIGHT PTX COMPARISON: DI CHEST,TWO VIEWS on DOS: 05/31/25, DI CHEST,TWO VIEWS on DOS: 05/29/25, DI CHEST,SINGLE VIEW on DOS: 05/16/25, DI CHEST,SINGLE VIEW on DOS: 05/16/25, DI CHEST,SINGLE VIEW on DOS: 05/15/25, DI CHEST,TWO VIEWS on DOS: 05/31/25 TECHNIQUE: Frontal and lateral view of the chest was obtained FINDINGS: Lines and Tubes: Right-sided Thora vent is noted terminating over the right medial upper lung zone. Left IJ approach Port-A-Cath terminating over the superior cavoatrial junction. Lungs: Right lower lung zone opacification with blunting of the right costophrenic angle. Interval improvement in the right-sided pneumothorax . Cardiomediastinal contours: Unremarkable Bones: No acute osseous abnormality. IMPRESSION: Improving right hydro pneumothorax.
== END 2025-06-05 23:59 | disposition home or self-care (01) ==
LOC: RAD 10:54
PROVIDERS: ATTEND Thoracic Surgery (Cardiothoracic Vascular Surgery)
DX: J93.9 Pneumothorax, unspecified (principal)
CPT/HCPCS: 71046

== ENCOUNTER 2025-06-12 08:48 | Outpatient (CLI) | payer MEDICAID ==
--- NOTE | 2025-06-12 11:04 | RADIOLOGY REPORT ---
EXAM: DI CHEST,TWO VIEWS CLINICAL HISTORY: RECURRENT R. PTX COMPARISON: DI CHEST,TWO VIEWS on DOS: 06/05/25, DI CHEST,TWO VIEWS on DOS: 05/31/25, DI CHEST,TWO VIEWS on DOS: 05/29/25, DI CHEST,SINGLE VIEW on DOS: 05/16/25, DI CHEST,SINGLE VIEW on DOS: 05/16/25 TECHNIQUE: Frontal and lateral view of the chest was obtained FINDINGS: Lines and Tubes: None Lungs: Moderate right pleural effusion with right catheter visualized in the chest tube. Multifocal right lung consolidative opacities. Cardiomediastinal contours: Unremarkable Bones: No acute osseous abnormality. IMPRESSION: Moderate right pleural effusion with right catheter visualized in the chest tube. Multifocal right lung consolidative opacities.
== END 2025-06-12 23:59 | disposition home or self-care (01) ==
LOC: RAD 08:48
PROVIDERS: ATTEND Thoracic Surgery (Cardiothoracic Vascular Surgery)
DX: J90 Pleural effusion, not elsewhere classified (principal); J93.9 Pneumothorax, unspecified
CPT/HCPCS: 71046

== ENCOUNTER 2025-09-15 13:37 | Emergency (ER) | payer MEDICAID ==
[~2025-09-15] VITALS: Ht 175.3 cm; Wt 61.4 kg
[~2025-09-15 13:37] MED LIST changes: -BUPR1PAT20 TD; +DOCU-391 PO; -HYDR-3973 PO; -LACT1CAP26 PO; +LANS30CA56 PO; +MSC30T PO; +ONDA-104 PO; +PER5325T PO; +PROC10TA97 PO
[2025-09-15 13:46] VITALS: TEMP 98.3
--- NOTE | 2025-09-15 13:59 | Physician Documentation ---
History of Present Illness ~ Chief Complaint: See Chief Complaint Stated Complaint: CHEST TUBE COMPLICATIONS Time Seen by MD: 14:43 Primary Medical Doctor: SUYAPA BETANCUR This is a 60-year-old male with a history of stage IV lung cancer who presents concern for continuous drainage of purulent fluid from a recent thoracentesis/chest tube site. Patient reports no recent fever. Patient reports he is scheduled with interventional radiology to have an indwelling chest drainage device placed in four days Records indicate patient was hospitalized approximately nine days prior due to pleural effusion related to lung cancer. Medication Reconciliation Allergies: Coded Allergies: codeine (Verified Allergy, Unknown, 09/15/25) itching and abdominal pain Scheduled Atorvastatin Calcium (Atorvastatin Calcium), 1 TAB PO DAILY, (Reported) Cholecalciferol (Vitamin D3) (Vitamin D3), 1 TAB PO DAILY, (Reported) Citalopram Hydrobromide* (Celexa*), 1 TAB PO DAILY, (Reported) Diphenhydramine Hcl (Benadryl), 6 CAP PO HS Docusate Sodium (Docusate Sodium), 1 CAP PO BID, (Reported) Doxycycline Monohydrate (Doxycycline Monohydrate), 100 MG PO BID Lansoprazole (Lansoprazole), 1 CAP PO DAILY, (Reported) Morphine Sulfate (MS CONTIN tablet), 1 TAB PO BID, (Reported) [place]-3 Acid Ethyl Esters ([place]-3 Acid Ethyl Esters), 2 CAP PO BID, (Reported) Sulfamethoxazole/Trimethoprim (Bactrim Ds Tablet), 1 TAB PO Q12H Scheduled PRN Ondansetron HCl (Ondansetron HCl), 1 TAB PO Q8H PRN for nausea, (Reported) Oxycodone Hcl/Acetaminophen 5/325 MG* (Percocet 5/325 MG*), 1 TAB PO Q4H PRN for pain, (Reported) Prochlorperazine Maleate (Prochlorperazine Maleate), 1 TAB PO Q6H PRN for nausea/vomiting, (Reported) Psyllium Husk (with Sugar) (Metamucil Powder), 5 ML PO DAILY PRN for constipation Trazodone Hcl (Trazodone Hcl), 2 TAB PO HS PRN for insomnia, (Reported) Past Medical History Past Medical History: Lung Cancer Patient History: FH: CHF (congestive heart failure) MOTHER FH: alcoholism FATHER FH: kidney disease FATHER Alcohol Use: None Drug Use: marijuana Lives with: Spouse, Family Lives In: Home Occupation: employed Physical Exam Vital Signs: Temperature: 98.3, Source: Oral, Heart Rate: 84, Respiratory Rate: 20, BP: 148/88, Pulse Oximetry: 96, Weight: 61.360 Oxygen Flow Rate: 0 Physical Exam VITALS: Reviewed and as above. GENERAL: Alert, ill-appearing, no apparent distress. HEENT: Within normal limits RESPIRATORY: Minimally increased work of breathing, no respiratory distress, speaking in sentences CHEST: Right chest 1 cm wound which appears to have scant drainage, area of previous pigtail catheter CV: No CVA TTP BACK: Within normal limits, no step-off GI: Normoactive bowel sounds, no McBurney's point tenderness, negative Byrd's MUSCULOSKELETAL: Moves all extremities well x4, no joint swelling SKIN: See chest exam for right chest wound description NEURO: Alert and oriented x4, cranial nerves 2-12 intact, moves all extremities well x4 PSYCH: No SI, no HI, no hallucinations Progress Results/Orders Results/Orders Completed Orders - SANAM RUSH MD Sulfamethox/Trimetho. Ds Tab (Mayra Ds (09/15/25 16:40) Doxycycline 100mg Capsule (Vibramycin 10 (09/15/25 16:36) Medications Received in ER Medications (Trade) Dose Ordered Sig/Tree Route PRN Reason Start Time Stop Time Status Last Admin Dose Admin (Septra DS tab) 1 tab ONCE ONCE PO 09/15/25 16:40 09/15/25 16:41 DC 09/15/25 17:33 1 TAB (VIBRAMYCIN 100mg capsule) 100 mg ONCE STAT PO 09/15/25 16:36 09/15/25 16:38 DC 09/15/25 17:33 100 MG Vital Signs 09/15/25 09/15/25 13:46 17:35 Temp 98.3 Pulse 84 84 Resp 20 18 B/P (MAP) 148/88 118/79 Pulse Ox 96 96 O2 Flow Rate 0 Laboratory Tests Test 09/15/25 16:00 White Blood Count 11.0 Red Blood Count 3.20 L Hemoglobin 9.0 L Hematocrit 27.8 L Mean Corpuscular Volume 86.9 Mean Corpuscular Hemoglobin 28.1 Mean Corpuscular Hemoglobin Concent 32.3 L Red Cell Distribution Width 21.6 H Platelet Count 354 Mean Platelet Volume 6.7 L Neutrophils (%) (Auto) 84.9 H Lymphocytes (%) (Auto) 5.0 L Monocytes (%) (Auto) 9.7 Eosinophils (%) (Auto) 0.1 Basophils (%) (Auto) 0.3 Neutrophils # (Auto) 9.3 H Lymphocytes # (Auto) 0.5 L Monocytes # (Auto) 1.1 H Eosinophils # (Auto) 0.0 Basophils # (Auto) 0.0 CBC Comment Sodium Level 136 Potassium Level 5.0 Chloride Level 101 Carbon Dioxide Level 29.5 Anion Gap 6 L Blood Urea Nitrogen 12 Creatinine 0.77 Estimated GFR/1.73 m2 > 90 BUN/Creatinine Ratio 15.6 Glucose Level 117 H Lactic Acid Level 1.8 Calcium Level 8.8 Albumin 1.7 L Chemistry Comments Microbiology Date/Time Source Procedure Growth Status 09/15/25 16:00 Blood Arm Right Blood Culture - Preliminary NEGATIVE (LESS THAN 24 HOURS) Resulted Consults/PCP Consults/PCP : Additional Comment Consult 1620:general surgeon , General surgery, who recommends allowing drainage, p.o. antibiotics, and for you to follow up with Interventional Radiology this week to evaluate for Pleurex placement Medical Decision Making Additional information obtaine: family Findings 60-year-old male with a history of stage IV lung cancer presents with drainage from wound where pigtail catheter was placed and then removed one week ago. Chest x-ray shows similar right lower loculation/effusion, case discussed extensively with general surgeon, no worsening of x-ray, would like area to continue to drain, p.o. antibiotics recommended, once patient to follow up with Interventional Radiology at the beginning of next week to discuss PleurX drainage, patient we will be going on hospice per patient's/family report some point in the near future Heart Score: 0 Differential Dx:Considerations: Include: bronchitis, pneumonia, pneumonitis, pneumothorax, upper resp. infection Departure Disposition: 01 HOME / SELF CARE / HOMELESS Impression: Primary Impression: Pleural effusion Additional Impression Text You have a right pleural effusion and loculation with drainage from a previous catheter site, your case has been discussed with General surgery, who recommends allowing drainage, p.o. antibiotics, and for you to follow up with Interventional Radiology this week to evaluate for Pleurex placement Additional Instructions: Your case was discussed with General surgery, who recommends allowing drainage, p.o. antibiotics, and for you to follow up with Interventional Radiology this week to evaluate for Pleurex placement; return for shortness of breath or pain Referrals: NO PRIMARY CARE PROVIDER (PCP) Prescriptions Doxycycline Monohydrate (Doxycycline Monohydrate) 100 Mg Capsule 100 MG PO BID for 10 Days, #20 CAP Prov: SANAM RUSH MD 09/15/25 Sulfamethoxazole/Trimethoprim (Bactrim Ds Tablet) 800 Mg-160 Mg Tablet 1 TAB PO Q12H for 10 Days, #20 TAB Prov: SANAM RUSH MD 09/15/25 Comments Your case was discussed with General surgery, who recommends allowing drainage, p.o. antibiotics, and for you to follow up with Interventional Radiology this week to evaluate for Pleurex placement Education Educated: Patient, Family Educated regarding: diagnosis, treatment Signature Scribe Signature: xx Attestation: The note accurately reflects work and decisions made by me.Sanam Rush MD 09/15/25 CAROLE TAVARES Sep 15, 2025 13:59 SANAM RUSH MD Sep 15, 2025 16:45
--- NOTE | 2025-09-15 14:37 | RADIOLOGY REPORT ---
EXAM: DI CHEST,TWO VIEWS CLINICAL HISTORY: Leaking thoracentesis site TECHNIQUE: Frontal and lateral views of the chest WID: COMPARISON: DI CHEST,SINGLE VIEW on DOS: 09/06/25, FINDINGS: Lines and tubes: There is a left IJ chest port with the tip projecting over the low SVC Chest: The heart size and pulmonary vasculature is within normal limits. Moderate loculated right pleural effusion slightly increased There is a persistent small to moderate right pneumothorax slightly increased. The right pleural drain has been removed. The osseous structures are grossly intact. IMPRESSION: 1. Removal of right pleural drain with slight increase in small to moderate right hydro pneumothorax.
[2025-09-15 16:17] LABS: MEAN PLATELET VOLUME 6.7 FL (7.4-10.4); RED CELL DISTRIBUTION WIDTH 21.6 % (11.5-14.5)
[2025-09-15 16:36] LABS: CREATININE 0.77 MG/DL (0.60-1.10); TOTAL CARBON DIOXIDE 29.5 MMOL/L (24-32); eCRCL 86 ML/MIN; eGFR > 90 ML/MIN
[2025-09-15] MEDS ORDERED: SULF1TAB49 PO (16:47)
[2025-09-15] MEDS ORDERED: DOXY100C43 PO (16:47)
[2025-09-15] MEDS: DOXYCYCLINE 100MG CAPSULE PO STA (17:33)
[2025-09-15] MEDS: sulfamethoxazole/trimethoprim DS (800/160mg) tablet PO ONE (17:33)
[2025-09-15 17:35] VITALS: BP 118/79; PULSE 84; RESP 18; O2SAT 96
== END 2025-09-15 17:37 | disposition home or self-care (01) ==
LOC: ER 13:38
DX: J90 Pleural effusion, not elsewhere classified (principal); F12.90 Cannabis use, unspecified, uncomplicated; Z88.5 Allergy status to narcotic agent; Z85.118 Personal history of other malignant neoplasm of bronchus and lung; Z79.899 Other long term (current) drug therapy
CPT/HCPCS: 36415; 71046; 80048; 83605; 85025; 87040; 99284